=== PATIENT | male | born 1970 | race Caucasian/White ===

== ENCOUNTER → 2018-06-04 | Outpatient (CLI) | payer BC ==
[~2018-06-04] MED LIST: CIPROFLOXACIN500 MG PO; CLARITIN10 MG; DESIPRAMINE PO; FLOMAX0.4 MG PO; FLONASE 0.05% 121 EA NAS; OMEPRAZOLE40 MG PO; PAMELOR10 M1 PO; PRILOSEC OTC20 MG; TRAMADOL HCL50 MG PO; VYTORIN 10 MG-41 TA1 PO; ZESTORETIC 12.51 TA1 PO; ZITHROMAX Z PA250 MG PO
[2018-06-04 12:27] LABS: ALKALINE PHOSPHATASE 76 U/L (45-117); BILIRUBIN, DIRECT < 0.1 mg/dL (0.0-0.2); IRON 74 ug/dL (65-175); SGOT/AST 56 IU/L (3-35); SGPT/ALT 204 U/L (12-78); TOTAL IRON BINDING CAPACITY 295 ug/dl (250-450); TOTAL PROTEIN 7.5 gm/dL (6.4-8.2)
[2018-06-05 08:10] LABS: ALPHA-1-ANTITRYPSIN, SERUM 107 mg/dL (90-200); IMMUNOGLOBULIN G, QNT 784 mg/dL (700-1600); IMMUNOGLOBULIN M, QNT 73 mg/dL (20-172)
[2018-06-05 14:11] LABS: AB TO HEPATITIS Be AG 006635 Negative (Negative)
[2018-06-05 15:06] LABS: ANTI-SMOOTH MUSCLE ANTIBODY 6 Units (0-19)
== END | disposition home or self-care (01) ==
LOC: LAB 11:17
PROVIDERS: Physician Assistant Medical
DX: K76.0 Fatty (change of) liver, not elsewhere classified (principal); M54.6 Pain in thoracic spine; R74.0 Nonspecific elevation of levels of transaminase and lactic acid dehydrogenase [LDH]

== ENCOUNTER 2020-01-25 09:50 | Emergency (ER) | payer BC ==
[~2020-01-25] VITALS: Wt 89.8 kg
[2020-01-25 10:16] LABS: BASO # 0.1 10*3/uL (0.0-0.1); EOS # 0.2 10*3/uL (0.0-0.4); EOS % 3.1 % (1.0-4.0); HEMATOCRIT 45.9 % (42.0-52.0); LYMPH # 1.3 10*3/uL (1.3-4.4); LYMPH % 24.8 % (27.0-41.0); MEAN CELL VOLUME 90.7 fl (80.0-94.0); MEAN CORPUSCULAR HGB 28.7 pg (27.0-31.0); MEAN CORPUSCULAR HGB CONC 31.6 g/dl (33.0-37.0); MEAN PLATELET VOLUME 9.8 fl (9.6-12.3); MONO # 0.3 10*3/uL (0.1-1.0); MONO % 5.5 % (3.0-9.0); NEUT # 3.4 10*3/uL (2.3-7.9); NEUT % 65.2 % (47.0-73.0); PLATELET COUNT AUTOMATED 251 10*3/uL (130-400); RED BLOOD COUNT 5.06 10*6/uL (4.50-5.90); RED CELL DISTRI WIDTH 14.6 % (0-14.5); WHITE BLOOD COUNT 5.1 10*3/uL (4.8-10.8)
[2020-01-25 10:27] LABS: ACT PARTIAL THROMBO TIME 28.2 SECONDS (20.0-32.1)
[2020-01-25 10:41] LABS: ALBUMIN 4.1 gm/dl (3.1-4.5); ALKALINE PHOSPHATASE 73 U/L (45-117); BUN 13 mg/dl (7-24); CHLORIDE 103 mmol/L (98-107); CREATININE 0.66 mg/dL (0.70-1.30); POTASSIUM 4.2 mmol/L (3.5-5.1); SGOT/AST 44 IU/L (3-35); SGPT/ALT 133 U/L (12-78); SODIUM 136 mmol/L (136-145); TOTAL PROTEIN 7.6 gm/dL (6.4-8.2)
[2020-01-25 10:44] LABS: TROPONIN I < 0.015 ng/ml (<0.045)
[2020-01-25 10:59] VITALS: BP 148/89
== END 2020-01-25 12:00 | disposition home or self-care (01) ==
LOC: ED 09:50
PROVIDERS: Emergency Medicine
DX: R07.9 Chest pain, unspecified (principal); Z79.899 Other long term (current) drug therapy

== ENCOUNTER → 2020-02-28 | Outpatient (CLI) | payer BC ==
[~2020-02-28] MED LIST changes: +ACULAR 3ML 3 ML5 ML OPH; +COMBIGAN 0.2%-010 ML OP; +LISINOPRIL10 M1 PO; +PRED FORTE5 ML OP; +STIOLTO RESPIMAT4 GM INH
== END | disposition home or self-care (01) ==
LOC: COVID19 14:27
PROVIDERS: ATTEND Physician Assistant
DX: U07.1 COVID-19 (principal); R69 Illness, unspecified

== ENCOUNTER → 2020-03-22 | Outpatient (CLI) | payer BC ==
--- NOTE | 2020-03-22 11:15 | NUR ---
INFORMED CONENT OBTAINED FOR EXERCISE CARDIOLITE STRESS TEST WITH DR. MOTA. RESTING EKG NSR WITH A SUPINE HR OF 65 WITH BP OF 138/88 AND HR OF 66 WITH BP OF 136/86 IN STANDING POSITION. PT COMPLETED 10:39 OF A KAYLAN PROTOCOL WITH COMPLETION OF 1:39 OF STAGE IV AT 4.2 MPH AND 16% GRADE. TEST TERMINATED BECAUSE OF FATIGUE. REACHED A PEAK HR OF 171 WHICH IS 99% OF PREDICTED MAX WITH PEAK BP OF 188/46. HAD NO ST CHANGES. HAD FREQUENT PVC'S WITH COUPLETS AND TRIPLET. IN STAGE IV DID C/O CHEST DISCOMFORT WITH DEEP BREATHING. CHEST DISCOMFORT RELIEVED FIRST MINUTE OF RECOVERY. HAS A HIGH EXERCISE TOLERANCE. LAST RECOVERY HR OF 104 WITH BP OF 150/84. TO NUCLEAR MEDICINE IN STABLE CONDITION FOR SCANNING.
== END | disposition home or self-care (01) ==
LOC: CARD 00:11
PROVIDERS: ATTEND Internal Medicine Cardiovascular Disease
DX: R94.31 Abnormal electrocardiogram [ECG] [EKG] (principal); R07.89 Other chest pain